=== PATIENT | male | born 1945 | race Caucasian/White ===

== ENCOUNTER 2018-12-07 13:28 | Observation (INO) ==
[2018-12-07] MEDS ORDERED: DILTIAZEM HCL 5 MG/ML VIAL IV ONE ×2 (13:41→13:43)
[2018-12-07] MEDS ORDERED: DILTIAZEM HCL 125 MG in DEXTROSE 5 % IN WATER 100 ML IV PRN ×2 (13:55)
[2018-12-07 13:57] LABS: Hematocrit 47.1 % (42.0-52.0); Hemoglobin 15.7 gm/dL (13.5-18.0); Mean Cell Volume 92.7 fl (78-100); Mean Corpuscular Hemoglobin 30.9 pg (27-31); Mean Corpuscular Hgb Conc 33.3 g/dl (32-36); Mean Platelet Volume 9.5 fl (8-11.3); Neutrophil # 5.2 K/mm3 (1.3-6.0); Neutrophil % 62.4 % (42-75.0); Platelet Count 188 K/mm3 (150-450); Red Blood Count 5.08 M/mm3 (4.7-6.0); Red Cell Distribution Width 12.4 % (11.5-14.0); White Blood Count 8.3 K/mm3 (4.0-10.5)
[2018-12-07 14:07] LABS: Prothrombin Time (Patient) 21.6 Seconds (9.1-10.7)
[2018-12-07 14:11] LABS: INR 2.25 INR (0.92-1.08)
[2018-12-07 14:13] LABS: ALT 21 U/L (19-67); AST 19 U/L (0-48); Albumin * 3.7 gm/dl (3.4-5.0); Alkaline Phosphatase * 73 U/L (50-170); Anion Gap 10.9 mmol/L (6.8-13.8); BUN/Creatinine Ratio 20.6 (9.0-21.6); Bilirubin, Total 0.7 mg/dL (0.0-1.1); Blood Urea Nitrogen 22 mg/dL (6-23); Ca. Corrected For Albumin 9.3 mg/dL (8.4-10.2); Calcium * 9.4 mg/dL (7.9-10.9); Carbon Dioxide 29.1 mmol/L (24-32.6); Chloride 103 mmol/L (97-106); Glucose * 149 mg/dL (70-110); Sodium 139 mmol/L (132-142); Total Protein 6.9 gm/dL (6.2-8.2); Troponin I Less than 0.017 ng/mL (0.00-0.10)
--- NOTE | 2018-12-07 16:54 | ERNOTE ---
Chest Pain/Cardiac HPI Date of Service: 12/07/18 Chief Complaint: Chest Pain Time Seen by Provider: 12/07/18 13:35 Source: patient Exam Limitations: no limitations Immunizations: IMMUNIZATION HX Immunizations Up to Date Yes History of Influenza Vaccine Yes Hx Pneumococcal Vaccination No Allergies/Adverse Reactions: Allergies No Known Allergies Allergy (Verified 12/07/18 13:44) Home Medications: HOME MEDICATIONS Mesalamine [Asacol Hd] 400 mg PO BID 10/10/17 [Last Taken Unknown] Multivitamin [Multivitamins] 1 each PO DAILY 10/10/17 [Last Taken Unknown] Warfarin Sodium [Coumadin] 7.5 mg PO DAILY 10/10/17 [Last Taken Unknown] metoprolol tartrate 100 mg tablet 100 mg PO BID #180 tab 06/06/18 [Last Taken Unknown] diltiazem CD 120 mg capsule,extended release 24 hr 120 mg PO DAILY #90 cap 11/24/18 [Last Taken Unknown] Narrative: Patient presents to the ED for high heart rate. He has a Hx of paroxysmal a fib. Today HR 160s. Not sure when this started. He states he gets stressed out. No CP or SOB. No fever. No other recent illnesses. No calf pain ro leg swelling. He is taking his cardizem still but not taking metoprolol which he possible is still supposed to be taking. He seems confused about his medications. Timing: constant Severity/Quality: other - no pain Chest Pain Radiation: other - none Activities at Onset: none Modifying Factors - Improves: Present: nothing Modifying Factors - Worsens: Present: nothing Associated Symptoms: Absent: syncope, cough, shortness of breath, fever/chills, weakness Prior Treatment: Denies: recently seen Review of Systems - Review of Systems Constitutional: Absent: fever ENT: Absent: sore throat Respiratory: Absent: shortness of breath Cardiology: Absent: chest pain Gastrointestinal/Abdominal: Absent: abdominal pain Genitourinary: Absent: dysuria Skin: Absent: rash Neurological: Absent: weakness All Other Systems: All systems neg except as marked Medical History (Last Reviewed 12/07/18 @ 16:49 by Jeramy Valenzuela MD) Afib Colitis HTN (hypertension) Hyperlipemia Surgical History: Surgical History (Last Reviewed 12/07/18 @ 16:49 by Jeramy Valenzuela MD) History of colonoscopy History of tonsillectomy and adenoidectomy Social History: Preferred Language Lithuanian Smoking Status Never smoker Alcohol Use none Drug Use none No Social History Section defined Physical Exam - Physical Exam General Appearance: Present: alert, no apparent distress Head Exam: Present: normal inspection, no evidence of injury Eye Exam: Normal inspection: bilateral, PERRL: bilateral Ears, Nose, Throat: Present: normal ENT inspection Neck: Present: normal inspection Respiratory: Present: no respiratory distress, normal breath sounds, no accessory muscle use, lungs clear Cardiovascular/Chest: Present: normal peripheral pulses, tachycardia, irregularly irregular Gastrointestinal/Abdominal: Present: normal bowel sounds, nontender, soft Back Exam: Present: normal range of motion Extremity Exam: Present: normal inspection, other - no DVT findings Neurological Exam: Present: alert, no motor/sensory deficits Skin Exam: Present: normal color, warm/dry Progress - Results and Orders Patient's Lab Results:: I have reviewed the patient's lab results. - Vital Signs Patient's Vital Signs:: I have reviewed the patient's vital signs. Vital Signs: Vital Signs 12/07/18 13:29 12/07/18 13:44 12/07/18 13:57 Temperature 36.8 C Pulse Rate 140 H 140 H 104 H Respiratory Rate 25 H 17 Blood Pressure 159/92 H 159/92 H 138/82 O2 Sat by Pulse Oximetry 96 96 12/07/18 14:18 12/07/18 14:35 12/07/18 14:48 Temperature Pulse Rate 109 H 110 H 108 H Respiratory Rate 15 19 Blood Pressure 144/85 144/85 143/104 H O2 Sat by Pulse Oximetry 95 97 12/07/18 15:15 Temperature Pulse Rate 112 H Respiratory Rate 19 Blood Pressure 164/103 H O2 Sat by Pulse Oximetry 96 - EKG EKG #1 EKG read: Interp. by me EKG Comments: A fib RVR, no-specific, no STEMI noted - X-Ray X-Ray #1 X-Ray: chest Interpretation: Interp. by me X-ray Comments: I reviewed official radiology report - Progress/Reassessment Chief Complaint: Chest Pain Progress Note-Subjective: 12/07/18 16:51 Patient had reasonable rate control with IV cardizem and drip. He wished to go home so the drip was stopped and we ambulated him, however [id number] paces his HR was in the 160s. Dr Hughes came down to see him and talked him into staying in the hospital on the drip overnight. Dr Hughes wanted to give him his metoprolol. I spoke wtih Dr Schneider who will admit and she will take care of the Beta sherry and getting his medications back on track. Departure Clinical Impression: Atrial fibrillation with RVR - Departure Disposition: Still a patient Condition: Stable
--- NOTE | 2018-12-07 18:56 | HP ---
Chief Complaint - Chief Complaint Date of Service: 12/07/18 Time of Service: 18:05 Chief Complaint: Elevated heart rate History of Present Illness: 73-year-old male with a past medical history of atrial fibrillation on anticoagulation, hypertension, hyperlipidemia, colitis presents from his primary care's office with complaints of tachycardia. He states he had forgotten to take his metoprolol for the past 1 month. In his PCPs office today he was found to be tachycardic with heart rate in the 160s and he was sent to the emergency department. He states he is asymptomatic with no chest pain shortness of breath or palpitations. In the ER he was started on a Cardizem drip with good response. Heart rate dropped down into the low 100s. 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 Smoking Status Former smoker Have you smoked in the past 12 Yes months Do you dip or chew tobacco pipe Alcohol Use none Drug Use none No Social History Section defined Review Of Systems (GEN) - Review of Systems Respiratory: Absent: Shortness of Breath Cardiac: Absent: Chest Pain, Palpitations Misc: All systems neg except as marked Immunizations: IMMUNIZATION HX Immunizations Up to Date Yes History of Influenza Vaccine Yes Hx Pneumococcal Vaccination No Allergies/Adverse Reactions: Allergies Allergy/AdvReac Type Severity Reaction Status Date / Time No Known Allergies Allergy Verified 12/07/18 13:44 Home Medications: HOME MEDICATIONS Mesalamine [Asacol Hd] 400 mg PO BID 10/10/17 [Last Taken Unknown] Multivitamin [Multivitamins] 1 each PO DAILY 10/10/17 [Last Taken Unknown] Warfarin Sodium [Coumadin] 7.5 mg PO DAILY 10/10/17 [Last Taken Unknown] metoprolol tartrate 100 mg tablet 100 mg PO BID #180 tab 06/06/18 [Last Taken Unknown] diltiazem CD 120 mg capsule,extended release 24 hr 120 mg PO DAILY #90 cap 11/24/18 [Last Taken Unknown] Guaifen/Phenyleph/Acetaminophn [Tylenol Sinus Severe Caplet] 1 ea PO PRN PRN 12/07/18 [Last Taken Unknown] Exam - Exam Vital Signs: Vital Signs - Last Taken Temp 36.9 C 12/07/18 18:00 Pulse 91 12/07/18 18:45 Resp 18 12/07/18 18:45 BP 129/78 12/07/18 18:45 Pulse Ox 95 12/07/18 18:45 Constitutional: Present: Alert, Cooperative, Well developed, Well nourished, No distress, Obese ENT Exam: Present: hearing grossly normal Eye Exam: bilateral eye: normal inspection Neck: Present: non-tender, supple. Absent: lymphadenopathy (R), lymphadenopathy (L) Back Exam: Present: normal inspection Respiratory: Present: lungs clear, no accessory muscle use, No wheezing. Absent: crackles, rhonchi Cardiovascular/Chest: Present: normal peripheral pulses, regular rate, rhythm, no murmur Peripheral Pulses: dorsalis-pedis (R): 2+, dorsalis-pedis (L): 2+ Abdomen: Present: Normal bowel sounds, soft, nontender Extremity: Present: non-tender, no pedal edema Skin Exam: Present: normal color, warm/dry Appearance: Present: appropriate appearance, appropriate insight Eye contact: Present: cooperative Thoughts: Present: normal mood /affect Diagnostic Studies: Abnormal Lab Results 12/07/18 12/07/18 Range/Units 13:51 13:51 PT 21.6 H (9.1-10.7) Seconds INR (Anticoag Therapy) 2.25 H (0.92-1.08) INR Random Glucose 149 H (70-110) mg/dL Laboratory Results WBC 8.3 K/mm3 (4.0-10.5) 12/07/18 13:51 RBC 5.08 M/mm3 (4.7-6.0) 12/07/18 13:51 Hgb 15.7 gm/dL (13.5-18.0) 12/07/18 13:51 Hct 47.1 % (42.0-52.0) 12/07/18 13:51 MCV 92.7 fl (78-100) 12/07/18 13:51 MCH 30.9 pg (27-31) 12/07/18 13:51 MCHC 33.3 g/dl (32-36) 12/07/18 13:51 RDW 12.4 % (11.5-14.0) 12/07/18 13:51 Plt Count 188 K/mm3 (150-450) 12/07/18 13:51 MPV 9.5 fl (8-11.3) 12/07/18 13:51 Immature Gran % (Auto) 0.20 % (0.001-0.429) 12/07/18 13:51 Immature Gran # (Auto) 0.02 K/mm3 (0.000-0.0310) 12/07/18 13:51 Neutrophils % 62.4 % (42-75.0) 12/07/18 13:51 Lymphocytes % 25.0 % (20-51) 12/07/18 13:51 Monocytes % 8.8 % (0.0-9) 12/07/18 13:51 Eosinophils % 2.8 % (0.0-3.0) 12/07/18 13:51 Basophils % 0.8 % (0.0-1.0) 12/07/18 13:51 Nucleated RBC % 0.0 k/mm3 (0-1) 12/07/18 13:51 Neutrophils # 5.2 K/mm3 (1.3-6.0) 12/07/18 13:51 Lymphocytes # 2.07 k/mm3 (1.5-3.5) 12/07/18 13:51 Monocytes # 0.7 k/mm3 (0.0-1.0) 12/07/18 13:51 Eosinophils # 0.2 k/mm3 (0.0-0.7) 12/07/18 13:51 Absolute Basophils 0.1 k/mm3 (0.0-0.1) 12/07/18 13:51 PT 21.6 Seconds (9.1-10.7) H 12/07/18 13:51 INR (Anticoag Therapy) 2.25 INR (0.92-1.08) H 12/07/18 13:51 Sodium 139 mmol/L (132-142) 12/07/18 13:51 Plasma Sodium 140 mmol/L (130-142) 12/07/18 13:51 Potassium 4.0 mmol/L (3.4-4.6) 12/07/18 13:51 Chloride 103 mmol/L (97-106) 12/07/18 13:51 Carbon Dioxide 29.1 mmol/L (24-32.6) 12/07/18 13:51 Anion Gap 10.9 mmol/L (6.8-13.8) 12/07/18 13:51 BUN 22 mg/dL (6-23) 12/07/18 13:51 Creatinine 1.07 mg/dL (0.4-1.4) 12/07/18 13:51 Est GFR (Non-Af Amer) 72 mL/min (60-130) 12/07/18 13:51 BUN/Creatinine Ratio 20.6 (9.0-21.6) 12/07/18 13:51 Random Glucose 149 mg/dL (70-110) H 12/07/18 13:51 Calcium 9.4 mg/dL (7.9-10.9) 12/07/18 13:51 Calcium Adj for Albumin 9.3 mg/dL (8.4-10.2) 12/07/18 13:51 Total Bilirubin 0.7 mg/dL (0.0-1.1) 12/07/18 13:51 AST 19 U/L (0-48) 12/07/18 13:51 ALT 21 U/L (19-67) 12/07/18 13:51 Alkaline Phosphatase 73 U/L (50-170) 12/07/18 13:51 Troponin I Less than 0.017 ng/mL (0.00-0.10) 12/07/18 13:51 Total Protein 6.9 gm/dL (6.2-8.2) 12/07/18 13:51 Albumin 3.7 gm/dl (3.4-5.0) 12/07/18 13:51 Assessment/Plan - Narrative Narrative: 73-year-old male with a past medical history of atrial fibrillation on anticoagulation, hypertension, hyperlipidemia, colitis presents from his primary care's office with complaints of tachycardia due to medication noncompliance. In the ER he was started on a Cardizem drip with good response. Heart rate dropped down into the low 100s. - Assessment/Plan (1) Atrial fibrillation with rapid ventricular response Assessment: Secondary to medication noncompliance. Rate controlled on Cardizem drip. We will titrate him off the Cardizem drip in the morning. Problem: Acute (2) HTN (hypertension) Assessment: Stable resume home meds. Problem: Chronic Qualifiers: Hypertension type: essential hypertension Qualified Code(s): I10 - Essential (primary) hypertension (3) Colitis Assessment: Stable resume home meds. Problem: Chronic
[2018-12-07] MEDS: DILTIAZEM HCL 120 MG CAP.SR.24H PO SCH (19:13)
[2018-12-07] MEDS ORDERED: WARFARIN SODIUM 7.5 MG TABLET PO SCH (19:15)
[2018-12-07] MEDS ORDERED: METOPROLOL TARTRATE 100 MG TABLET ONE (19:20)
[2018-12-07] MEDS: METOPROLOL TARTRATE 100 MG TABLET PO SCH ×2 (19:20→20:05)
[2018-12-07] MEDS ORDERED: MESALAMINE 400 MG PO SCH (21:00)
[2018-12-08 06:10] LABS: Albumin * 3.5 gm/dl (3.4-5.0); Anion Gap 8.4 mmol/L (6.8-13.8); BUN/Creatinine Ratio 18.1 (9.0-21.6); Bilirubin, Total 1.2 mg/dL (0.0-1.1); Ca. Corrected For Albumin 9.2 mg/dL (8.4-10.2); Calcium * 9.1 mg/dL (7.9-10.9); Potassium 4.4 mmol/L (3.4-4.6); Total Protein 6.6 gm/dL (6.2-8.2)
[2018-12-08 07:00] LABS: Prothrombin Time (Patient) 20.7 Seconds (9.1-10.7)
[2018-12-08 07:11] LABS: INR 2.15 INR (0.92-1.08)
[2018-12-08] MEDS: METOPROLOL TARTRATE 100 MG TABLET PO SCH (07:44)
[2018-12-08] MEDS: DILTIAZEM HCL 120 MG CAP.SR.24H PO SCH (07:46)
[2018-12-08] MEDS ORDERED: DILTIAZEM HCL 120 MG CAP.SR.24H PO SCH (09:00)
[2018-12-08] MEDS ORDERED: MULTIVITAMINS 1 CAP CAPSULE PO SCH (09:00)
--- NOTE | 2018-12-08 10:57 | DS ---
(1) Atrial fibrillation with rapid ventricular response Problem: Resolved (2) HTN (hypertension) Problem: Chronic Qualifiers: Hypertension type: essential hypertension Qualified Code(s): I10 - Essential (primary) hypertension (3) Colitis Problem: Chronic Description of Stay: 73-year-old male with a past medical history of atrial fibrillation on anticoagulation, hypertension, hyperlipidemia, colitis presents from his primary care's office with complaints of tachycardia. He states he had forgotten to take his metoprolol for the past 1 month. In his PCPs office today he was found to be tachycardic with heart rate in the 160s and he was sent to the emergency department. He states he is asymptomatic with no chest pain shortness of breath or palpitations. In the ER he was started on a Cardizem drip with good response. Heart rate dropped down into the low 100s. He was restarted on his home dose of metoprolol tartrate and the Cardizem drip was discontinued. His heart rate remained in the 80s-90s and with ambulation heart rate was in the low 100s-110. He is stable for discharge home and follow-up with his PCP in 1 week. Procedures Performed: none Results and Findings: Lab Pending Results 12/07/18 13:51: WBC 8.3, RBC 5.08, Hgb 15.7, Hct 47.1, MCV 92.7, MCH 30.9, MCHC 33.3, RDW 12.4, Plt Count 188, MPV 9.5, Immature Gran % (Auto) 0.20, Immature Gran # (Auto) 0.02, Neutrophils % 62.4, Lymphocytes % 25.0, Monocytes % 8.8, Eosinophils % 2.8, Basophils % 0.8, Nucleated RBC % 0.0, Neutrophils # 5.2, Lymphocytes # 2.07, Monocytes # 0.7, Eosinophils # 0.2, Absolute Basophils 0.1 12/07/18 13:51: PT 21.6 H, INR (Anticoag Therapy) 2.25 H 12/07/18 13:51: Sodium 139, Plasma Sodium 140, Potassium 4.0, Chloride 103, Carbon Dioxide 29.1, Anion Gap 10.9, BUN 22, Creatinine 1.07, Est GFR (Non-Af Amer) 72, BUN/Creatinine Ratio 20.6, Random Glucose 149 H, Calcium 9.4, Calcium Adj for Albumin 9.3, Total Bilirubin 0.7, AST 19, ALT 21, Alkaline Phosphatase 73, Troponin I Less than 0.017, Total Protein 6.9, Albumin 3.7 12/08/18 05:15: PT 20.7 H, INR (Anticoag Therapy) 2.15 H 12/08/18 05:41: Sodium 138, Plasma Sodium 138, Potassium 4.4, Chloride 105, Carbon Dioxide 29.0, Anion Gap 8.4, BUN 19, Creatinine 1.05, Est GFR (Non-Af Amer) 74, BUN/Creatinine Ratio 18.1, Random Glucose 100 D, Calcium 9.1, Calcium Adj for Albumin 9.2, Total Bilirubin 1.2 H, AST 19, ALT 20, Alkaline Phosphatase 68, Total Protein 6.6, Albumin 3.5 Discharge Location: Home Disposition: Home self-care Condition: Stable Discharge Activity: Activity as tolerated Discharge Diet: Low salt Referrals: Claudio Hughes MD [Primary Care Provider] - Additional Patient Instructions (free text): -Please make TCM appointment unless retirement discharge. Thank you! Margot @ [phone]. Complete Home Medications List: Complete Home Medication List: Mesalamine [Asacol Hd] 400 mg PO BID 10/10/17 Multivitamin [Multivitamins] 1 each PO DAILY 10/10/17 Warfarin Sodium [Coumadin] 7.5 mg PO DAILY 10/10/17 diltiazem CD 120 mg capsule,extended release 24 hr 120 mg PO DAILY #90 cap 11/24/18 Guaifen/Phenyleph/Acetaminophn [Tylenol Sinus Severe Caplet] 1 ea PO PRN PRN 12/07/18 Metoprolol Tartrate [Lopressor] 100 mg PO BID 12/08/18
[2018-12-08 11:18] VITALS: BP 135/78
== END 2018-12-08 11:50 | disposition home or self-care (01) ==
LOC: ER 13:28 → SCU 13:28 → MS 13:28 → SCU 17:10
PROVIDERS: ADMIT Internal Medicine; ATTEND Internal Medicine
CPT/HCPCS: 36415; 71010; 71045; 80053; 84484; 85025; 85610; 93005; 96374; 99285; G0378